=== PATIENT | male | born 1990 | race Caucasian/White ===

== ENCOUNTER 2017-11-21 02:51 | Emergency (ER) | payer OTHER, SELFPAY ==
[2017-11-21 02:52] VITALS: BP 132/78; PULSE 87; RESP 18; TEMP 36.6; O2SAT 99; BMI 27.4
--- NOTE | 2017-11-21 03:10 | CT_ITS ---
STUDY: CT BRAIN WITHOUT CONTRAST REASON FOR EXAM: Male, 27 years old. Patient fell RADIATION DOSAGE (If Supplied By Facility): CTDIvol = ( 44.99 ) mGy, DLP = ( 796.11 ) mGycm TECHNIQUE: Transaxial CT imaging of the brain was performed without administration of intravenous contrast material. Individualized dose optimization techniques were used for this CT. COMPARISON: None. FINDINGS: Normal soft tissue structures. Normal calvarium. Normal size ventricles and extra-axial spaces for the patient's age. Normal white matter tracts of the cerebral hemispheres. Normal basal ganglia and thalami. Normal brainstem. Normal cerebellum. There is no intracranial hemorrhage. There are no findings of an acute ischemic infarction. Normal visualized paranasal sinuses. CT/Brain/Head without Contrast IMPRESSION: Normal unenhanced CT scan of the brain. No acute findings in the brain Electronically Signed: Fuad Wilder, at 5:00 EDT Tel , Service support ,
--- NOTE | 2017-11-21 05:30 | ED.VISSUMM ---
- ER Visit Summary Date of Service: 11/21/17 Chief Complaint: [] Alcohol intoxication History of Present Illness: The patient is a 27 M [] presenting with acute alcohol intoxication and change in mental status. Patient has obvious abrasions to his head. He appears filthy with no shoes on and is covered with grass and dirt. 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 Remainder of the history is murky. Physical Examination: [] Afebrile, vital signs stable. 27-year-old intoxicated male no acute distress. Several abrasions to the right forehead, several abrasions to the lower extremities. Pupils are equal round reactive to light, extraocular movements are intact. There is slight lateral nystagmus consistent with alcohol intoxication. Cardia vascular exam is regular rate and rhythm. Lungs are clear to auscultation. Abdomen is soft and nontender. There is no significant upper or lower external knee tenderness on palpation. Test Results: [] CT head: Negative. Serum alcohol level 0.294. Emergency Department Course and Treatment: [] CT of the head was negative. Alcohol level came back at 0.294. Patient was observed for approximately 3 hours. He will be discharged in the care of a friend who came to pick him up. Treatment Plan: [] To be discharged in the care of a close friend who will drive him home and watch him throughout the evening. Disposition: [] Discharge, stable. Discharge in the care of a close female friend who is not intoxicated. Impression: [] Alcohol intoxication Close head injury This note was generated with [employer] dictation software. It may contain incorrect words, spelling, and punctuation that were not noted in review of the chart prior to signing ED Disposition - Plan for ED Patient: Chief Complaint: Head Injury Referrals: [facility] Doctor,Out of [Primary Care Provider] -
--- NOTE | 2017-11-21 05:34 | ED.DCSUM_ITS ---
- ER Visit Summary Date of Service: 11/21/17 Chief Complaint: [] Alcohol intoxication History of Present Illness: The patient is a 27 M [] presenting with acute alcohol intoxication and change in mental status. Patient has obvious abrasions to his head. He appears filthy with no shoes on and is covered with grass and dirt. 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 Remainder of the history is murky. Physical Examination: [] Afebrile, vital signs stable. 27-year-old intoxicated male no acute distress. Several abrasions to the right forehead, several abrasions to the lower extremities. Pupils are equal round reactive to light, extraocular movements are intact. There is slight lateral nystagmus consistent with alcohol intoxication. Cardia vascular exam is regular rate and rhythm. Lungs are clear to auscultation. Abdomen is soft and nontender. There is no significant upper or lower external knee tenderness on palpation. Test Results: [] CT head: Negative. Serum alcohol level 0.294. Emergency Department Course and Treatment: [] CT of the head was negative. Alcohol level came back at 0.294. Patient was observed for approximately 3 hours. He will be discharged in the care of a friend who came to pick him up. Treatment Plan: [] To be discharged in the care of a close friend who will drive him home and watch him throughout the evening. Disposition: [] Discharge, stable. Discharge in the care of a close female friend who is not intoxicated. Impression: [] Alcohol intoxication Close head injury This note was generated with [employer] dictation software. It may contain incorrect words, spelling, and punctuation that were not noted in review of the chart prior to signing ED Disposition - Plan for ED Patient: Chief Complaint: Head Injury Referrals: [facility] Doctor,Out of [Primary Care Provider] -
--- NOTE | 2017-11-21 05:34 | ED.DEP ---
ED Disposition - Plan for ED Patient: Disposition: Home or Assisted Living Chief Complaint: Head Injury Instructions: ED Head Injury Closed, Signs of Alcohol Addiction (Alcoholism) Referrals: [facility] Doctor,Out of [Primary Care Provider] -
[2017-11-21 05:41] VITALS: BP 127/74; PULSE 77; RESP 16; O2SAT 95
--- NOTE | 2017-11-21 05:43 | NURSING ---
PT HAD NO SHOES WHEN HE LEFT, HE WAS GIVEN SOCKS, AND LEFT WITH A SOBER FRIEND. SHE IS TAKING HIM BACK HOME.
== END 2017-11-21 05:44 | disposition home or self-care (01) ==
PROVIDERS: Emergency Provider Emergency Medicine
DX: F10.129 Alcohol abuse with intoxication, unspecified (principal); Y90.8 Blood alcohol level of 240 mg/100 ml or more; S00.81XA Abrasion of other part of head, initial encounter; X58.XXXA Exposure to other specified factors, initial encounter; Y93.9 Activity, unspecified; Y92.9 Unspecified place or not applicable
CPT/HCPCS: 70450; 80320; 99284; G0480